=== PATIENT | female | born 1960 | race Caucasian/White ===

== ENCOUNTER → 2023-03-15 10:10 | Outpatient (CLI) | payer MEDICARE, SELFPAY ==
--- NOTE | 2023-03-15 | DI.MG.S_ITS ---
BILATERAL DIGITAL DIAGNOSTIC MAMMOGRAM 3D/2D: 03/15/2023 CLINICAL: Right breast pain. Comparison is made to exams dated: 05/01/2022 mammogram, 01/04/2021 mammogram, and 12/31/2019 mammogram - [facility]. Both breasts are almost entirely fatty (category a/<25% glandular tissue). No significant masses, calcifications, or other findings are seen in either breast. IMPRESSION: INCOMPLETE: NEEDS ADDITIONAL IMAGING EVALUATION There is no abnormality seen in the right breast to correspond with the area of clinical concern and pain in the sub-areolar depth/nipple, however, an ultrasound is recommended for further evaluation and is scheduled to immediately follow this examination. Based on the Tyrer Cuzick model (a risk assessment model) the patient's lifetime risk is 6.3% and her 10 year risk is 2.7%. According to the ACR, ACS, and NCCN guidelines, an annual breast MRI exam along with mammogram is recommended if the patient's lifetime risk is 20% or greater. This exam was interpreted at Station ID: [id number]. NOTE: For mammograms, a report in lay terms will be sent to the patient. Approximately 15% of breast malignancies will not be visualized mammographically. In the management of a palpable breast mass, a negative mammogram must not discourage biopsy of a clinically suspicious lesion. Electronically Signed By: Abdoulaye Coronel M.D. aty/:03/15/2023 10:44:37 ACR BI-RADS Category 0: Incomplete 3340F
--- NOTE | 2023-03-15 | DI.US.S_ITS ---
ULTRASOUND OF RIGHT BREAST: 03/15/2023 CLINICAL: Focal right breast pain. Comparison is made to exams dated: 03/15/2023 mammogram - [facility], 05/01/2022 mammogram, 01/04/2021 mammogram, 12/31/2019 mammogram, 03/17/2018 ultrasound, and 03/17/2018 mammogram - [facility]. Real-time ultrasound of the right breast was performed. Abrams scale images of the real-time examination were reviewed. No significant abnormalities were seen sonographically in the right breast. IMPRESSION: NEGATIVE There is no sonographic evidence of malignancy. There is no abnormality seen in the right breast to correspond with the area of clinical concern and pain in the subareolar right breast/nipple as indicated by square marker on today's mammogram, however, recommend clinical follow up for persistent or worsening symptoms, or development of any clinically suspicious findings. A 1 year screening mammogram is recommended. Findings and recommendations were conveyed to the patient during today's evaluation. This exam was interpreted at Station ID: [id number]. Electronically Signed By: Abdoulaye Coronel M.D. aty/:03/15/2023 12:08:32 letter sent: Clinical Evaluation Ultrasound BI-RADS: 1 Negative
== END ==
PROVIDERS: PCP Physician Assistant; Referring Provider Physician Assistant; Visit Provider Physician Assistant
DX: N64.4 Mastodynia (principal); Z80.3 Family history of malignant neoplasm of breast; R92.2 Inconclusive mammogram
CPT/HCPCS: 76642; 77066; G0279